=== PATIENT | female | born 1970 | race Caucasian/White ===

== ENCOUNTER 2016-12-14 11:40 | Emergency (ER) | payer MEDICAID ==
[~2016-12-14] VITALS: Ht 162.6 cm; Wt 59.4 kg
--- NOTE | 2016-12-14 12:46 | Urgent Treatment Center Report ---
History of Present Issue Date/Time Seen by Provider 12/14/16 1245 Visit Reason Pt arrived:Walked Presenting Problem:PT C/O RT SHOULDER PAIN AFTER PULLING ON SOMETHING HEAVY AT HOME YESTERDAY AND THEN HEARD HER SHOULDER POP Location if Accident:Home Onset of symptoms date/time:/ or onset unknown for:MEDICAL HX UNKNOWN Have you (or family members/close friends) recently traveled outside the [place]? N If Yes, where/when: Have you had exposure to infectious disease within the past month? TB? Other? Specify: c/o right shoulder pain and limited ROM s/p injury yesterday. reports she was pulling on something heavy when she felt a pop in her anterior shoulder w/ immediate pain and difficulty moving arm. ROM is "somewhat better" today but still significantly limited. Pain radiating into upper arm stopping at elbow. Denies N/T. Hasn't taken or tried anything for pain. Source patient Exam Limitations clinical condition (pain) ALLERGIES Coded Allergies: No Known Allergies (12/14/16) Home Medications Active Scripts IBUPROFEN MICRONIZED (IBUPROFEN 600MG) 600 MG PO Q8HP PRN pain #20 TAB Prov: 09/10/15 Methocarbamol (Robaxin 750MG) 750 MG PO BID #15 TAB Prov: 09/10/15 Reported Medications PAROXETINE HCL (Paxil) 10 MG PO DAILY Bupropion HCl (Bupropion HCl Sr 150mg) 150 MG PO BID BUDESONIDE/FORMOTEROL FUMARATE (Symbicort 160-4.5 Mcg Inhaler) 1 PUFF IH BID Atorvastatin Calcium (Lipitor 20MG) 20 MG PO DAILY History Medical History General CAD? No Angina: Yes AK: No Hypertension? Yes Hyperlipidemia? Yes CHF? No DVT? No PE? No COPD? Yes Asthma? Yes Anemia? No GERD? No Gastric ulcers? No GI Bleed? No Hernia? No Thyroid Problems? No Hypothyroidism? No CVA? No Seizures? No Diabetes? No Renal Insuffiency? No UTI? No Stones? No BPH? No GB Disease: No Nephritic Syndrome? No Asplenia? No Hepatitis? No Sickle Cell Disease? No Arthritis? No Migraines? No Cataracts? No Glaucoma? No MRSA? No HIV? No TB? No Anxiety? Yes Depression? No Cancer? No More? Yes Additional hx: ABNORMAL EKG CARPAL TUNNEL Immunization HX DT/Tetanus Unknown Flu Refused Pneumonia Refuses Surgical Hx Previous Surgery?Y BACK SURGERY FOOT SURGERY BREAST IMPLANTS CARPAL TUNNEL TUBAL Family History Family HX Diabetes Yes CAD Yes Hypertension No Hyperlipidemia No Cancer Yes TB No Social History Smoking Hx Smoker: Current Every Day Smoker Tobacco: Yes Type Cigarettes Packs/day < 1 Pack Alcohol Alcohol: No Review of Systems All Other Systems Reviewed and Negative Constitutional denies fever, denies malaise Respiratory denies shortness of breath Cardiovascular denies chest pain Musculoskeletal see HPI, denies back pain, denies joint swelling, denies muscle stiffness, denies neck pain Skin denies change in color, denies lumps Psychiatric/Neurological see HPI Physical Exam Vital Signs Vital Signs Date Time Temp Pulse Resp B/P Pulse O2 O2 Flow FiO2 Ox Delivery Rate 12/14 1333 18 12/14 1238 98.2 78 16 143/90 99 General Appearance no apparent distress Respiratory Status No: respiratory distress. Cardiovascular no peripheral edema Peripheral Pulses Pulses normal Yes (radial) Back normal inspection, gait normal, no tenderness Extremities normal inspection (right shoulder and upper arm), minimal ROM right shoulder, all directions; FROM rt digits, wrist, elbow. Pain right shoulder w/ elbow ROM. Tenderness right anterior shoulder only. Bicep muscle intact. Strength 3 Lower Ext (R), 5 Lower Ext (L) Neurologic alert, no motor/sensory deficits, oriented x 3 Mental status normal mood/affect Skin normal color, warm/dry Medical Decision Making LABS/Meds/Orders Pt receiving controlled substance in ED? No Results/Orders Current Medication Orders Sig/Vita Start time Last Medication Dose Route Stop Time Status Admin Ketorolac 0 .STK-MED ONE 12/14 1330 DC Tromethamine .ROUTE Ketorolac 60 MG ONCE ONE 12/14 1315 DC 12/14 Tromethamine IM 12/14 1316 1333 Orders Procedure Date/time Status STABILIZE JOINT 12/14 1423 Active [id number] VIEWS 12/14 1226 Active XRAY/CT/US XRAY/CT/US XRAY shoulder (right) XR interpretation by discussed w/radiologist (waiting for him to review) Xray Results result not available when pt left AMA Progress [facility] Progress Notes 1 Date 12/14/16 Time 1338 Comment pt aware we are waiting for ERMD to review xrays. States + understanding. [facility] Progress Notes 2 Date 12/14/16 Time 1418 Comment ER MD still not available to read xrays and radiologist in a "lengthy study" per radiology. Both agree they will review xrays when they have time. Pt no longer wants to wait for discharge. Prefers to leave AMA "and find out results and necessary treatment later. I have things I need to do and I have been here too long." Aware that results of xray will determine appropriate treatment and follow up but still doesn't want to wait for results. Request a sling prior to leaving. Departure Departure Time of Disposition 1423 Disposition Against Medical Advice Clinical Impression Primary Impression: Sprain of right shoulder Qualifiers: Encounter type: initial encounter Shoulder sprain type: unspecified sprain Qualified Code: S43.401A - Unspecified sprain of right shoulder joint, initial encounter Condition STABLE Referrals INDIA SMITH (Family) Be sure to follow up with primary care for xray results, necessary treatment and to inquire if referral to ortho necessary. Patient Instructions DI for Shoulder Sprain Additional Instructions * results of your xray will determine most appropriate treatment but since those are not available, I encourage you to BE SURE to follow up with primary care for results and therefore, treatment. In the meantime: * Rest * ice 15-20 mins 3-4 times a day * Ibuprofen every 6 hours as needed for pain and inflammation. If you need something more, you can take tylenol every 4 hours as needed as long as your primary care provider has told you it is ok to take both. Discharge Counseling Counseled pt/family regarding diagnosis, medications/RX, follow up needs at [phone]
[2016-12-14 14:31] VITALS: BP 143/90
--- NOTE | 2016-12-14 14:41 | RADIOLOGY REPORT PS360 ---
[id number]-3 VIEWS HISTORY: Right shoulder pain/sprain/strain PULLED ON SOMETHIMG AT HOME ORDERING PHYSICIAN: SOL ABRAHAM APRN PATIENT AGE: 46 years COMPARISON: None FINDINGS: No fracture or dislocation. No lytic or blastic change. There is normal mineralization. The joint spaces are well-preserved. No significant degenerative/arthritic changes. No erosive changes evident. IMPRESSION: Negative, no acute finding
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
--- OUTSIDE RECORDS SUMMARY | 2017-01-06 03:36 | External Medical Summary Rpt ---
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 Name Role Phone CRISTIAN FOSTER Unavailable Unavailable [facility] Un[facility] Un[facility], [facility] Unavailable Unavailable INC, [facility], Unavailable Unavailable [facility] CHRISTINE TRA, CHRISTINE TRA Unavailable Unavailable CHRISTINE TRA, CHRISTINE TRA Unavailable Unavailable [facility] GATITO MEDEROS Unavailable Un[facility] JOHNNY, JOHNNY Unavailable Unavailable [...] STONE Unavailable Unavailable MIMI, MIMI Unavailable Unavailable [facility] Unavailable Unavailable HOSPITALS, [facility] Unavailable Unavailable Purpose Continuity of Care Document - 06-02-2013 through 2016 Problems Code Diagnosis DOS Provider Status G8929 OTHER 11-26-2016 [facility] CHRONIC PHYSICIANS PAIN GROUP L237 ALLERGIC 11-26-2016 [facility] CONTACT PHYSICIANS DERMATITIS GROUP D/T PLANTS EXCP FOOD M545 LOW BACK 11-26-2016 [facility] PAIN PHYSICIANS GROUP [id number] PAIN IN 11-26-2016 [facility] LEFT HAND PHYSICIANS GROUP R0609 OTHER FORMS 11-26-2016 [facility] OF DYSPNEA PHYSICIANS GROUP Q211 ATRIAL 11-06-2016 [facility] DEFECT [facility] Z8673 PERSONAL HX 11-06-2016 [facility] INFARCT NO RESID DEFICIT I358 OTHER 10-13-2016 [facility] NONRHEUMATI SERV C AORTIC FOUNDATION VALVE DISORDERS I5189 OTHER 10-13-2016 [facility] ILL-DEFINED SERV HEART [facility] DISEASES I639 CEREBRAL 08-25-2016 [facility] UNSPECIFIED INC Z1231 ENCOUNTER 08-20-2016 [facility] MALIG IMAGING ASS NEOPLASM BREAST Z0100 ENCOUNTER 08-04-2016 [facility] EXAM EYES & VISION W/O ABNORMAL FIND Z0389 ENCOUNTER 07-30-2016 [facility] OBSERV OTH SERV SUSPCT DZ & FOUNDATION COND RULED OUT I509 HEART 07-29-2016 [place] [facility] FAILURE SERV UNSPECIFIED [facility]OUNDATION I10 ESSENTIAL 07-28-2016 [place] [facility] PR[facility] HYPERTENSIO FOUNDATION N I499 CARDIAC 07-28-2016 [place] [facility] ARRHYTHMIA SERV UNSPECIFIED FOUNDATION J449 CHRONIC 07-28-2016 [facility] OBSTRUCTIVE SERV PULMONARY FOUNDATION DISEASE UNS R208 OTHER 07-28-2016 [facility] DISTURBANCE SERV S OF SKIN FOUNDATION SENSATION U02257 NIHSS SCORE 07-28-2016 [facility] 4011 ESSENTIAL 08-25-2013 MIGUEL ÁNGEL CHARANJIT HYPERTENSIO N, BENIGN 496 CHRONIC 08-25-2013 MIGUEL ÁNGEL CHARANJIT AIRWAY OBSTRUCTION NEC 59292 ESOPHAGEAL 08-25-2013 MIGUEL ÁNGEL CHARANJIT REFLUX 7213 [...] 60 1- 9- 00 07 MA ve IN 00 20 20 50 RT ED 10 17 17 70 NI 3 78 PH SO AR LO MA NE CY 4 #5 MG 91 DO SE PK CO 00 08 09 4. 30 00 OR Ac MB 59 -3 -2 00 00 L- ti IV 70 1- 9- 0 07 MA ve EN 02 20 20 50 RT T 40 17 17 70 RE 2 79 PH SP AR IM MA AT CY IN #5 PAREKH 91 L SP RA Y CL 54 08 09 30 30 00 OR Ac OP 45 -1 -0 .0 00 L- ti ID 80 1- 1- 00 07 MA ve OG 88 20 20 50 RT RE 81 17 17 34 L 6 82 PH 75 AR MA MG CY TA #5 BL 91 ET BU 00 08 09 60 30 00 OR Ac IN 59 -0 -0 .0 00 L- ti OP 13 6- 1- 00 07 MA ve IO 54 20 20 50 RT N 10 17 17 10 HC 5 91 PH L AR SR MA CY 15 0 #5 MG 91 TA BL ET SP 00 08 09 4. 30 00 OR Ac IR 59 -0 -0 00 00 L- ti IV 70 4- 1- 0 07 MA ve A 10 20 20 50 RT RE 06 17 17 21 SP 1 95 PH IM AR AT MA CY 2. 5 #5 MC 91 G IN H PA 54 07 08 30 30 00 OR Ac RO 45 -2 -2 .0 00 L- ti XE 80 7- 5- 00 07 MA ve TI 99 20 20 50 RT NE 01 17 17 10 0 87 PH HC AR L MA 10 CY MG #5 91 TA BL ET AT 68 07 08 30 30 00 OR Ac OR 64 -2 -2 .0 00 L- ti VA 50 7- 5- [address] 45 20 20 50 RT AT 85 17 17 10 IN 4 86 PH AR 10 MA CY MG #5 TA 91 BL ET AM 68 07 08 30 30 00 OR Ac LO 64 -2 -2 .0 00 L- ti DI 50 7- 5- 00 07 MA ve PI 51 20 20 50 RT NE 65 17 17 10 4 90 PH BE AR SY MA LA CY TE #5 10 91 MG TA B TR 00 07 08 15 10 00 OR Ac IA 16 -2 -2 .0 00 L- ti MC 80 7- 5- 00 07 MA ve IN 00 20 20 50 RT OL 41 17 17 10 ON 5 94 PH E AR 0. MA 1% CY CR #5 EA 91 M BU 00 07 08 60 30 00 OR Ac IN 59 -1 -0 .0 00 L- ti [...] BU 00 05 06 60 30 00 OR Ac IN 59 -3 -3 .0 00 L- ti OP 13 1- 0- 07 MA ve IO 54 20 20 49 RT N 10 17 17 08 HC 5 40 PH L AR SR MA CY 15 0 #5 MG 91 TA BL ET DI 65 05 06 10 25 00 OR Ac CL 16 -1 -0 0. 00 L- ti OF 20 07 MA ve EN 83 20 20 0 48 RT AC 36 17 17 88 6 30 PH SO AR DI MA UM CY 1% #5 91 GE L PA 54 05 06 30 30 00 OR Ac RO 45 -1 -0 .0 00 [...] DOS Code Location Performer Comment INJECTION J1040 [facility] STONE 7 PHYSICIAN METHYLPRE S GROUP DNISOLONE ACETATE 80 MG THERAPEUT 95885 [facility] STONE IC 7 PHYSICIAN PROPHYLAC S GROUP TIC/DX INJECTION SUBQ/IM INJECTION J1100 [facility] STONE 7 PHYSICIAN DEXAMETHO S GROUP SONE SODIUM PHOSPHATE 1 MG SEPTAL C1817 [facility] DEFECT 7 HEALTHCAR HEALTHCAR IMPLANT E E SYSTEM [facility] INTRACARD IAC GUIDE C1769 [facility] WIRE 7 HEALTHCAR HEALTHCAR E E HOSPITALS HOSPITALS INJECTION J3010 [facility] FENTANYL 7 HEALTHCAR HEALTHCAR CITRATE E E 0.1 MG [facility]ITALS INJECTION J3370 [facility] 7 [facility] HEALTHCAR VANCOMYCI E E N [place]CL [address] [place] [address] [facility] GUIDANCE 7 [facility]ALTHCAR HEALTHCAR NEEDLE E E PLACEMENT [facility]IT[facility] IMG S&I INJECTION J2250 [facility] 7 HEALTHCAR HEALTHCAR MIDAZOLAM E E HCL PER [facility]ALS [facility]OSPITALS 1 MG BLOOD 94351 [facility] COUNT 7 HEALTHCAR HEALTHCAR COMPLETE E E AUTOMATED [facility] INTRACARD 73779 [facility] ECHOCARD 7 HEALTHCAR HEALTHCAR E E W/THER/DX [facility] IVNTJ INCL IMG S&I INTRDUCR/ C1894 [facility] SHEATH 7 [facility]ALTHCAR HEALTHCAR NOT GUID E E INTRACARD [facility] EP NON-LASR CATHETER C1759 [facility] INTRACARD 7 HEALTHCAR HEALTHCAR IAC E E ECHOCARDI [facility] OGRAPHY BASIC 17944 [facility] METABOLIC 7 HEALTHCAR HEALTHCAR PANEL E E CALCIUM [facility] TOTAL URINE 35391 [facility] 7 HEALTHCAR HEALTHCAR TEST E E VISUAL [facility] COLOR CMPRSN METHS PRQ TCAT 12283 [facility] CLSR CGEN 7 HEALTHCAR HEALTHCAR INTRATRL E E HOSPITALS [facility] COMUNICAJ W/IMPLT DOPPLER 93727 [facility] ECHOCARD 7 MEDICAL PULSE SERV WAVE FOUNDATIO W/SPECTRA N L DISPLAY MOD SED 66823 [facility] SAME 7 MEDICAL PHYS/QHP SERV EACH ADDL FOUNDATIO 15 MINS N INJECTION J2250 [facility] 7 HEALTHCAR HEALTHCAR MIDAZOLAM E E HCL PER [facility] 1 MG INJECTION J3010 [facility] FENTANYL 7 HEALTHCAR HEALTHCAR CITRATE E E 0.1 MG [facility] ECHO 56702 [facility] BRANDYN TRANSESOP 7 MEDICAL HAG R-T SERV 2D W/PRB FOUNDATIO IMG N ACQUISJ I&R DOP 76878 [facility] AHUMADA ECHOCARD 7 MEDICAL COLOR SERV FLOW FOUNDATIO VELOCITY N MAPPING MOD SED 57592 [facility] AHUMADA JULISA 7 MEDICAL PHYS/QHP SERV INITIAL FOUNDATIO 15 MINS N 5/> YRS ASSESSMEN 82082 [facility] W/INTERP INC INC & REPORT PER HOUR SCREENING G0202 [facility] 7 MEDICAL MAMMOGRAP IMAGING HY CHARLES ASS INCL CAD WHEN PERFORMD SCREENING 70669 [facility] 7 [facility]OSP MAMMOGRAP INC INC HY BI 2-VIEW BREAST INC CAD DETERMINA 43419 [facility] 7 REFRACTIV E STATE OPHTH 99436 [facility] 7 XM&EVAL COMPRE NEW PT 1/> VST HOSPITAL 58766 [facility] 7 MEDICAL DAY SERV MANAGEMEN FOUNDATIO T 30 N MIN/< DUP-SCAN 04987 [facility] MINI XTR VEINS 7 MEDICAL COMPLETE SERV FOUNDATIO BILATERAL N STUDY ECHO 72038 [facility] TTHRC R-T 7 MEDICAL 2D SERV W/WOM-MOD FOUNDATIO E COMPL N SPEC&COLR D SBSQ 59874 [facility] 7 MEDICAL CARE/DAY SERV 25 FOUNDATIO MINUTES N RADIOLOGI 32067 [facility] MIMI C 7 MEDICAL EXAMINATI SERV ON CHEST FOUNDATIO SINGLE N VIEW FRONTAL INITIAL 01919 [facility] 7 MEDICAL CARE/DAY SERV 70 FOUNDATIO MINUTES N ECG 61278 [facility]CO ROUTINE 7 MEDICAL ECG SERV W/LEAST FOUNDATIO 12 LDS N I&R ONLY RADEX 55053 [facility] TRA CHRISTINE TRA SPINE 4 LUMBOSACR AL 2/3 VIEWS CYTP 64267 AMINAH BURR CERV/VAG 4 GLE GLE AUTO THIN LAYER PREP MNL SCREEN OPHTH 38803 SCIFRES SCIFRES MEDICAL 4 ANG ANG XM&EVAL COMPRE NEW PT 1/> VST Encounters Encounter Start End Date Code Location Performer Type Date OFFICE 12080 [facility] TYRELL OUTPATIEN 7 7 PHYSICIAN T VISIT S GROUP 25 MINUTES [facility]OSPITAL - 7 7 HEALTHCAR OUTPATIEN E T HOSPITALS OFFICE 13870 [facility] 7 7 MEDICAL T VISIT SERV 15 FOUNDATIO MINUTES N HOSPITAL - 7 7 HEALTHCAR OUTPATIEN E T HOSPITALS OFFICE 12762 [facility] CONSULTAT 7 7 MEDICAL ION SERV NEW/ESTAB FOUNDATIO PATIENT N 60 MIN [facility] [place] [facility] 7 7 [facility] OUTPATIEN INC [facility] - 7 7 MEM HOSP OUTPATIEN [facility] OFFICE 34156 MIGUEL ÁNGEL DONOHUE OUTPATIEN 4 4 T VISIT 15 MINUTES OFFICE [address]11[address] [facility] TRA CONSULTAT 4 4 ION NEW/ESTAB PATIENT 60 MIN OFFICE 90344 MIGUEL ÁNGEL DONOHUE OUTPATIEN 4 4 T VISIT 15 MINUTES INITIAL 98535 AMINAH BURR PREVENTIV 4 4 GLE GLE E MEDICINE NEW PATIENT 40-64YRS
--- OUTSIDE RECORDS SUMMARY | 2017-01-06 03:37 | External Medical Summary Rpt ---
Author Author TRESSA Looney, TRESSA Looney Organization [employer] Address Unknown Phone Unavailable
--- OUTSIDE RECORDS SUMMARY | 2017-01-06 03:37 | External Medical Summary Rpt ---
Demographics Preferred Language Sinhala Marital Status Unknown Episcopal Affiliation Unknown Race Unknown Ethnic Group Unknown Author Author TRESSA Address Unknown Phone Immunization No patient found.
--- OUTSIDE RECORDS SUMMARY | 2017-01-06 03:37 | External Medical Summary Rpt ---
Author Author , TRESSA Organization TRESSA Address Unknown Phone [email or web address] Care Team Providers Care Fur Cleaner Name Role Phone DUKEKE, DUKEKE Unavailable Unavailable [facility] Un[facility] Un[facility] INC, [facility] Unavailable Unavailable INC, [facility], Unavailable Unavailable [facility] CHRISTINE TRA, CHRISTINE TRA Unavailable Unavailable CHRITSINE TRA, CHRISTINE TRA Unavailable Unavailable [facility] Unavailable [facility]available [facility], [facility] GAT[facility] MEDEROS Unavailable [facility]available [facility], [facility] JOHNNY, JOHNNY Unavailable Unavailable VENUS, VENUS Unavailable Unavailable VENUS, VENUS Unavailable Unavailable AMINAH GLE, Unavailable Unavailable AMINAH GLE AMINAH GLE, Unavailable Unavailable AMINAH GLE MINION, MINION Unavailable Unavailable MIGUEL ÁNGEL CHARANJIT, MIGUEL ÁNGEL CHARANJIT Unavailable Unavailable MIGUEL ÁNGEL CHARANJIT, MIGUEL ÁNGEL CHARANJIT Unavailable Unavailable FRANCO, FRANCO Unavailable Unavailable SCIFRES ANG, SCIFRES Unavailable Unavailable ANG SCIFRES ANG, SCIFRES Unavailable Unavailable ANG STONE, STONE Unavailable Unavailable MIMI, MIMI Unavailable Unavailable [facility] Unavailable Unavailable HOSPITALS, [facility] Unavailable Unavailable Purpose Continuity of Care Document - 06-02-2013 through 2016 Problems Code Diagnosis DOS Provider Status G8929 OTHER 11-26-2016 [facility] CHRONIC PHYSICIANS PAIN GROUP L237 ALLERGIC 11-26-2016 [facility] CONTACT PHYSICIANS DERMATITIS GROUP D/T PLANTS EXCP FOOD M545 LOW BACK 11-26-2016 [facility] PAIN PHYSICIANS GROUP F68166 PAIN IN 11-26-2016 [facility] LEFT HAND PHYSICIANS GROUP R0609 OTHER FORMS 11-26-2016 [facility] OF DYSPNEA PHYSICIANS GROUP Q211 ATRIAL 11-06-2016 [facility] DEFECT [facility] Z8673 PERSONAL HX 11-06-2016 [facility] CEREB [facility] INFARCT NO RESID DEFICIT I358 OTHER 10-13-2016 [place] [facility] NONRHEUMATI SERV C AORTIC FOUNDATION VALVE DISORDERS I5189 OTHER 10-13-2016 [facility] ILL-DEFINED SERV [facility]ART [facility] DISEASES I639 CEREBRAL 08-25-2016 [facility] UNSPECIFIED INC Z1231 ENCOUNTER 08-20-2016 [facility]IG [facility]AG[facility] ASS NEOPLASM BREAST Z0100 ENCOUNTER 08-04-2016 [facility] EXAM EYES & VISION W/O ABNORMAL FIND Z0389 ENCOUNTER 07-30-2016 [facility] OBSERV OTH SERV SUSPCT DZ & FOUNDATION COND RULED OUT I509 HEART 07-29-2016 [place] [facility] FAILURE SERV UNSPECIFIED FOUNDATION I10 ESSENTIAL 07-28-2016 [place] [facility] PR[facility] HYPERTENSIO FOUNDATION N I499 CARDIAC 07-28-2016 [place] [facility] ARRHYTHMIA SERV UNSPECIFIED FOUNDATION J449 CHRONIC 07-28-2016 [place] [facility] OBSTRUCTIVE SERV PULMONARY FOUNDATION DISEASE UNS R208 OTHER 07-28-2016 [place] [facility] DISTURBANCE SERV S OF SKIN [facility]OUNDATION SENSATION A64957 NIHSS SCORE 07-28-2016 [facility] 4011 ESSENTIAL 08-25-2013 MIGUEL ÁNGEL CHARANJIT HYPERTENSIO N, BENIGN 496 CHRONIC 08-25-2013 MIGUEL ÁNGEL CHARANJIT AIRWAY OBSTRUCTION NEC 28482 ESOPHAGEAL 08-25-2013 MIGUEL ÁNGEL CHARANJIT REFLUX 7213 LUMBOSACRAL 08-25-2013 MIGUEL ÁNGEL CHARANJIT SPONDYLOSIS WITHOUT MYELOPATHY 7384 ACQUIRED 07-27-2013 [facility]STINE TRA SPONDYLOLIS THESIS V252 STERILIZATI 06-20-2013 AMINAH ON GLE V7231 ROUTINE 06-20-2013 AMINAH GYNECOLOGIC GLE AL EXAMINATION V7285 OTHER 06-20-2013 AMINAH SPECIFIED GLE EXAMINATION 3674 PRESBYOPIA 06-02-2013 SCIFRES ANG Medications Na ND Rx Da Fi Fi [...] UM CY 1% #5 91 GE L CO 00 08 09 4. 30 00 WA Ac MB 59 -3 -2 00 00 L- ti IV 70 1- 9- 0 07 MA ve EN 02 20 20 50 RT T 40 17 17 70 RE 2 79 PH SP AR IM MA AT CY IN #5 PAREKH 91 L SP RA Y ME 59 08 09 21 6 00 WA Ac TH 74 -3 -2 .0 00 L- ti YL 60 1- 9- 00 07 MA ve VA 00 20 20 50 RT ED 10 17 17 70 NI 3 78 PH SO AR LO MA NE CY 4 #5 MG 91 DO SE PK SP 00 08 09 4. 30 00 AR Ac IR 59 -0 -0 00 00 L- ti IV 70 4- 1- 0 07 MA ve A 10 20 20 50 RT RE 06 17 17 21 SP 1 95 PH IM AR AT MA CY 2. 5 #5 MC 91 G IN H BU 00 08 09 60 30 00 AR Ac VA 59 -0 -0 .0 00 L- ti OP 13 6- 1- 00 07 MA ve IO 54 20 20 50 RT N 10 17 17 10 HC 5 91 PH L AR SR MA CY 15 0 #5 MG 91 TA BL ET CL 54 08 09 30 30 00 AR Ac OP 45 -1 -0 .0 00 L- ti ID 80 1- 1- 00 07 MA ve OG 88 20 20 50 RT RE 81 17 17 34 L 6 82 PH 75 AR MA MG CY TA #5 BL 91 ET AM 68 07 08 30 30 00 AR Ac LO 64 -2 -2 .0 00 L- ti DI 50 7- 5- 00 07 MA ve PI 51 20 20 50 RT NE 65 17 17 10 4 90 PH BE AR SY MA LA CY TE #5 10 91 MG TA B TR 00 07 08 15 10 00 AR Ac IA 16 -2 -2 .0 00 L- ti MC 80 7- 5- 00 07 MA ve IN 00 20 20 50 RT OL 41 17 17 10 ON 5 94 PH E AR 0. MA 1% CY CR #5 EA 91 M PA 54 07 08 30 30 00 AR Ac RO 45 -2 -2 .0 00 L- ti XE 80 7- 5- 00 07 MA ve TI 99 20 20 50 RT NE 01 17 17 10 0 87 PH HC AR L MA 10 CY MG #5 91 TA BL ET AT 68 07 08 30 30 00 AR Ac OR 64 -2 -2 .0 00 L- ti VA 50 7- 5- [address] 45 20 20 50 RT AT 85 17 17 10 IN 4 86 PH AR 10 MA CY MG #5 TA 91 BL ET BU 00 07 08 60 30 00 AR Ac VA 59 -1 -0 .0 00 L- ti OP 13 1- 4- 00 07 MA ve IO 54 20 20 49 RT N 10 17 17 08 HC 5 40 PH L AR SR MA CY 15 0 #5 MG 91 TA BL ET TR 00 06 07 15 10 00 AR Ac IA 16 -0 -0 .0 00 L- ti MC 80 7- 7- 00 07 MA ve IN 00 20 20 49 RT OL 41 17 17 21 ON 5 62 PH E AR 0. MA 1% CY CR #5 EA 91 M PA 54 06 10 25 30 00 AR Ac RO 45 -1 -0 .0 00 L- ti XE 80 5- 7- 00 07 MA ve TI 99 20 20 48 RT NE 01 17 17 88 0 29 PH HC AR L MA 10 CY MG #5 91 TA BL ET BU 00 05 06 60 30 00 AR Ac VA 59 -3 -3 .0 00 L- ti OP 13 1- 0- 00 07 MA ve IO 54 20 20 49 RT N 10 17 17 08 HC 5 40 PH L AR SR MA CY 15 0 #5 MG 91 TA BL ET AT 68 05 09 25 30 00 AR Ac OR 64 -3 -3 .0 00 L- ti VA 50 1- 0- [address] 46 20 20 48 RT AT 05 17 17 62 IN 4 57 PH AR 40 MA CY MG #5 TA 91 BL ET DI 65 05 06 10 25 00 AR Ac CL 16 -1 -0 0. 00 L- ti OF 20 9 07 MA ve EN 83 20 20 0 48 RT AC 36 17 17 88 6 30 PH SO AR DI MA UM CY 1% #5 91 GE L PA 54 05 30 30 00 AR Ac RO 45 -1 -0 .0 00 L- ti XE 80 9 9- 07 MA ve TI 99 20 20 48 RT NE 01 17 17 88 0 29 PH HC AR L MA 10 CY MG #5 91 TA BL ET SY 00 05 06 10 30 00 AR Ac MB 18 -1 -0 .1 00 L- ti IC 60 9 9 99 07 MA ve OR 37 20 20 48 RT T 02 17 17 88 16 0 28 PH 0- AR 4. MA 5 CY MC G #5 IN 91 PAREKH LE R AT 68 05 30 30 00 WA Ac OR 64 -0 -0 .0 00 L- ti VA 50 4- 2- [address] 46 20 20 48 RT AT 05 17 17 62 IN 4 57 PH AR 40 MA CY MG #5 TA 91 BL ET CH 00 05 06 53 28 00 AR Ac AN 06 -0 -0 .0 00 L- ti TI 90 4- 2- 00 07 MA ve X 47 [address] 10 17 17 62 AR 3 56 PH TI AR NG MA CY MO NT #5 H 91 NAFISA X Procedures Procedure DOS Code Location Performer Comment THERAPEUT 29756 [facility] STONE IC 7 PHYSICIAN PROPHYLAC S GROUP TIC/DX INJECTION SUBQ/IM INJECTION J1100 [facility] STONE 7 PHYSICIAN DEXAMETHO S GROUP SONE SODIUM PHOSPHATE 1 MG INJECTION J1040 [facility] STONE 7 PHYSICIAN METHYLPRE S GROUP DNISOLONE ACETATE 80 MG INJECTION J2250 [facility] 7 HEALTHCAR HEALTHCAR MIDAZOLAM E E HCL PER [facility] 1 MG INTRACARD 24144 [facility] ECHOCARD 7 HEALTHCAR HEALTHCAR E E W/THER/DX [facility] IVNTJ INCL IMG S&I BASIC 34981 [facility] METABOLIC 7 HEALTHCAR HEALTHCAR PANEL E E CALCIUM [facility] TOTAL URINE 59084 [facility] 7 HEALTHCAR HEALTHCAR TEST E E VISUAL [facility] COLOR CMPRSN METHS GUIDE C1769 [facility] WIRE 7 HEALTHCAR HEALTHCAR E E [facility] PRQ TCAT 89647 [facility] CLSR CGEN 7 HEALTHCAR HEALTHCAR INTRATRL E E [facility] COMUNICAJ W/IMPLT BLOOD 78546 [facility] COUNT 7 HEALTHCAR HEALTHCAR COMPLETE E E AUTOMATED [facility] INTRDUCR/ C1894 [facility] SHEATH 7 HEALTHCAR HEALTHCAR NOT GUID E E INTRACARD [facility] EP NON-LASR CATHETER C1759 [facility] INTRACARD 7 HEALTHCAR HEALTHCAR IAC E E ECHOCARDI [facility] [place] [address] [facility] GUIDANCE 7 HEALTHCAR HEALTHCAR NEEDLE E E PLACEMENT [facility] IMG S&I SEPTAL C1817 [facility] DEFECT 7 HEALTHCAR HEALTHCAR IMPLANT E E SYSTEM [facility] INTRACARD IAC INJECTION J3010 [facility] FENTANYL 7 HEALTHCAR HEALTHCAR CITRATE E E 0.1 MG [facility]OSPITALS INJECTION J3370 [facility] 7 HEALTHCAR HEALTHCAR VANCOMYCI E E N HCL 500 [facility] MG DOPPLER 50956 [facility] ECHOCARD 7 HEALTHCAR HEALTHCAR PULSE E E WAVE [facility] W/SPECTRA L DISPLAY INJECTION J3010 [facility] FENTANYL 7 HEALTHCAR HEALTHCAR CITRATE E E 0.1 MG HOSPITALS HOSPITALS MOD SED 45750 [facility] SAME 7 HEALTHCAR HEALTHCAR PHYS/QHP E E INITIAL [facility] 15 MINS 5/> YRS MOD SED 69395 [facility] SAME 7 HEALTHCAR HEALTHCAR PHYS/QHP E E EACH ADDL [facility] 15 MINS ECHO 80927 [facility] TRANSESOP 7 HEALTHCAR HEALTHCAR HAG R-T E E 2D W/PRB [facility] IMG ACQUISJ I&R DOP 18406 [facility] ECHOCARD 7 HEALTHCAR HEALTHCAR COLOR E E FLOW [facility] VELOCITY MAPPING INJECTION J2250 [facility] 7 HEALTHCAR HEALTHCAR MIDAZOLAM E E HCL PER [facility] 1 MG ASSESSMEN 88598 [facility] 7 [facility] H[facility]OSP W/INTERP INC INC & REPORT PER HOUR SCREENING 96539 [facility]OS[facility] MAMMOGRAP INC INC HY BI 2-VIEW BREAST INC CAD SCREENING G0202 [place] [address] MEDICAL MAMMOGRAP IMAGING HY CHARLES ASS INCL CAD WHEN PERFORMD DETERMINA 18795 [facility] 7 REFRACTIV E STATE OPHTH 49634 [facility] 7 XM&EVAL COMPRE NEW PT 1/> VST [facility] 575[address] [facility] 7 MEDICAL DAY SERV MANAGEMEN FOUNDATIO T 30 N MIN/< DUP-SCAN 92831 [facility]ION XTR VEINS 7 MEDICAL COMPLETE SERV FOUNDATIO BILATERAL N STUDY SBSQ 62422 [facility] 7 MEDICAL CARE/DAY SERV 25 FOUNDATIO MINUTES N ECHO 78617 [facility] MEDEROS TTHRC R-T 7 MEDICAL 2D SERV W/WOM-MOD FOUNDATIO E COMPL N SPEC&COLR D RADIOLOGI 23508 [facility] 7 MEDICAL EXAMINATI SERV ON CHEST FOUNDATIO SINGLE N VIEW FRONTAL INITIAL [address] [place] [address] MEDICAL CARE/DAY SERV 70 FOUNDATIO MINUTES N ECG 87463 [facility] 7 MEDICAL ECG SERV W/LEAST FOUNDATIO 12 LDS N I&R ONLY RADEX 46889 [facility] TRA CHRISTINE TRA SPINE 4 LUMBOSACR AL 2/3 VIEWS CYTP 96464 AMINAH BURR CERV/VAG 4 GLE GLE AUTO THIN LAYER PREP MNL SCREEN OPH 87159 SCIFRES SCIFRES MEDICAL 4 ANG ANG XM&EVAL COMPRE NEW PT 1/> VST Encounters Encounter Start End Date Code Location Performer Type Date OFFICE 64926 [facility] STONE OUTPATIEN 7 7 PHYSICIAN T VISIT S GROUP 25 MINUTES [facility]OS[facility] - [facility] 7 [facility] OUTPATIEN E T [facility]PITALS OFFICE 88957 [facility] 7 7 MEDICAL T VISIT SERV 15 FOUNDATIO MINUTES N HOSPITAL [facility] - 7 7 [facility]CAR OUTPATIEN E T HOSPITALS OFFICE 12288 [facility] 7 7 MEDICAL ION SERV NEW/ESTAB FOUNDATIO PATIENT N 60 MIN [facility] [place] [facility] OUTPATIEN INC T OFFICE 02025 MIGUEL ÁNGELTIFFANY DONOHUE OUTPATIEN 4 4 T VISIT 15 MINUTES OFFICE 37124 [facility]STINE TRA CONSULTAT 4 4 ION NEW/ESTAB PATIENT 60 MIN OFFICE 33091 MIGUEL ÁNGEL PARK CHARANJIT OUTPATIEN 4 4 T VISIT 15 MINUTES INITIAL 05346 AMINAH BURR PREVENTIV 4 4 GLE GLE E MEDICINE NEW PATIENT 40-64YRS
--- OUTSIDE RECORDS SUMMARY | 2017-01-06 03:37 | External Medical Summary Rpt ---
Author Author , TRESSA Organization TRESSA Address Unknown Phone [email or web address] Care Team Providers Care Quarantine Officer Name Role Phone DUKEKE, DUKEKE Unavailable Unavailable [facility] Unavailable [facility], [facility] Unavailable Unavailable [facility], [facility], Unavailable Unavailable [facility] CHRISTINE TRA, CHRISTINE TRA Unavailable Unavailable CHRIST[facility] TRA, CHRISTINE TRA Unavailable Unavailable [facility] GATITO MEDEROS Unavailable Unavailable [facility] [place] [facility]ONE Unavailable Unavailable MIMI, MIMI Unavailable Unavailable [facility] Unavailable [facility], [facility] R[facility] MIRANDA Unavailable Unavailable Purpose Continuity of Care Document - 06-02-2013 through 2016 Problems Code Diagnosis DOS Provider Status G8929 OTHER 11-26-2016 [facility] L237 ALLERGIC 11-26-2016 [facility] DERMATITIS [facility] D/T PLANTS EXCP FOOD M545 LOW BACK 11-26-2016 [facility] PAIN [facility]YS[facility] [id number] PAIN IN 11-26-2016 [facility] LEFT HAND [facility]YS[facility] R0609 OTHER FORMS 11-26-2016 [facility] OF DYSPNEA PHYSICIANS GROUP Q211 ATRIAL 11-06-2016 [facility] DEFECT [facility] Z8673 PERSONAL HX 11-06-2016 [facility]ALTHCARE CEREB [facility] INFARCT NO RESID DEFICIT I358 OTHER 10-13-2016 [facility] VALVE DISORDERS I5189 OTHER 10-13-2016 [facility] DISEASES I639 CEREBRAL 08-25-2016 [facility] UNSPEC[facility] Z1231 ENCOUNTER 08-20-2016 [facility] NEOPLASM BREAST Z0100 ENCOUNTER 08-04-2016 [facility] EXAM EYES & VISION W/O ABNORMAL FIND Z0389 ENCOUNTER 07-30-2016 [facility] SUSPCT DZ & [facility] COND RULED OUT I509 HEART 07-29-2016 [facility]URE [facility] I10 ESSENTIAL 07-28-2016 [facility] HYPERTENSIO [facility] N I499 CARDIAC 07-28-2016 [facility] ARRHYTHMIA [facility]NSPECIFIED [facility] J449 CHRONIC 07-28-2016 [facility] PULMONARY [facility] DISEASE UNS R208 OTHER 07-28-2016 [facility] S OF SKIN [facility] SENSATION [id number] NIHSS SCORE 07-28-2016 [facility] 4011 ESSENTIAL 08-25-2013 MIGUEL ÁNGEL CHARANJIT HYPERTENSIO N, BENIGN 496 CHRONIC 08-25-2013 [facility]IG[facility] ÁNGEL CHARANJIT AIRWAY OBSTRUCTION NEC 78383 ESOPHAGEAL 08-25-2013 MIGUEL ÁNGEL CHARANJIT REFLUX 7213 [...] 60 1- 9- 00 07 MA ve VT 00 20 20 50 RT ED 10 17 17 70 NI 3 78 PH SO AR LO MA NE CY 4 #5 MG 91 DO SE PK SP 00 08 09 4. 30 00 NV Ac IR 59 -0 -0 00 00 L- ti IV 70 4- 1- 0 07 MA ve A 10 20 20 50 RT RE 06 17 17 21 SP 1 95 PH IM AR AT MA CY 2. 5 #5 MC 91 G IN H BU 00 08 09 60 30 00 NV Ac VT 59 -0 -0 .0 00 L- ti OP 13 6- 1- 00 07 MA ve IO 54 20 20 50 RT N 10 17 17 10 HC 5 91 PH L AR SR MA CY 15 0 #5 MG 91 TA BL ET CL 54 08 09 30 30 00 NV Ac OP 45 -1 -0 .0 00 L- ti ID 80 1- 1- 00 07 MA ve OG 88 20 20 50 RT RE 81 17 17 34 L 6 82 PH 75 AR MA MG CY TA #5 BL 91 ET AM 68 07 08 30 30 00 NV Ac LO 64 -2 -2 .0 00 L- ti DI 50 7- 5- 00 07 MA ve PI 51 20 20 50 RT NE 65 17 17 10 4 90 PH BE AR SY MA LA CY TE #5 10 91 MG TA B TR 00 07 08 15 10 00 NV Ac IA 16 -2 -2 .0 00 L- ti MC 80 7- 5- 00 07 MA ve IN 00 20 20 50 RT OL 41 17 17 10 ON 5 94 PH E AR 0. MA 1% CY CR #5 EA 91 M PA 54 07 08 30 30 00 NV Ac RO 45 -2 -2 .0 00 L- ti XE 80 7- 5- 00 07 MA ve TI 99 20 20 50 RT NE 01 17 17 10 0 87 PH HC AR L MA 10 CY MG #5 91 TA BL ET AT 68 07 08 30 30 00 NV Ac OR 64 -2 -2 .0 00 L- ti VA 50 7- 5- [address] 45 20 20 50 RT AT 85 17 17 10 IN 4 86 PH AR 10 MA CY MG #5 TA 91 BL ET BU 00 07 08 60 30 00 NV Ac VT 59 -1 -0 .0 00 L- ti OP 13 1- 4- 00 07 MA ve IO 54 20 20 49 RT N 10 17 17 08 HC 5 40 PH L AR SR MA CY 15 0 #5 MG 91 TA BL ET TR 00 06 07 15 10 00 NV Ac IA 16 -0 -0 .0 00 L- ti MC 80 7- 7- 00 07 MA ve IN 00 20 20 49 RT OL 41 17 17 21 ON 5 62 PH E AR 0. MA 1% CY CR #5 EA 91 M PA 54 06 10 25 30 00 NV Ac RO 45 -1 -0 .0 00 L- ti XE 80 5- 7- 00 07 MA ve TI 99 20 20 48 RT NE 01 17 17 88 0 29 PH HC AR L MA 10 CY MG #5 91 TA BL ET BU 00 05 06 60 30 00 NV Ac VT 59 -3 -3 .0 00 L- ti OP 13 1- 0- 00 07 MA ve IO 54 20 20 49 RT N 10 17 17 08 HC 5 40 PH L AR SR MA CY 15 0 #5 MG 91 TA BL ET AT 68 05 09 25 30 00 NV Ac OR 64 -3 -3 .0 00 L- ti VA 50 1- 0- [address] 46 20 20 48 RT AT 05 17 17 62 IN 4 57 PH AR 40 MA CY MG #5 TA 91 BL ET DI 65 05 06 10 25 00 NV Ac CL 16 -1 -0 0. 00 L- ti OF 20 9 07 MA ve EN 83 20 20 0 48 RT AC 36 17 17 88 6 30 PH SO AR DI MA UM CY 1% #5 91 GE L PA 54 05 30 30 00 NV Ac RO 45 -1 -0 .0 00 L- ti XE 80 9 9- 07 MA ve TI 99 20 20 48 RT NE 01 17 17 88 0 29 PH HC AR L MA 10 CY MG #5 91 TA BL ET SY 00 05 06 10 30 00 NV Ac MB 18 -1 -0 .1 00 [...] CH 00 05 06 53 28 00 NV Ac AN 06 -0 -0 .0 00 L- ti TI 90 4- 2- 00 07 MA ve X 47 [address] 10 17 17 62 AR 3 56 PH TI AR NG MA CY MO NT #5 H 91 NAFISA X Procedures Procedure DOS Code Location Performer Comment THERAPEUT 22956 [facility] 7 PHYSICIAN PROPHYLAC S GROUP TIC/DX INJECTION SUBQ/IM INJECTION J1100 [facility] 7 PHYSICIAN DEXAMETHO S GROUP SONE SODIUM PHOSPHATE 1 MG INJECTION J1040 [facility] 7 PHYSICIAN METHYLPRE S GROUP DNISOLONE ACETATE 80 MG INJECTION J2250 [facility] MIDAZOLAM E E HCL PER [facility] 1 MG INTRACARD 12515 [facility] ECHOCARD 7 [facility] HEALTHCAR E E W/THER/DX [facility] IVNTJ INCL IMG S&I BASIC 75265 [facility] METABOLIC 7 [facility] PANEL E E CALCIUM [facility] TOTAL URINE 16932 [facility] TEST E E VISUAL [facility] COLOR CMPRSN METHS GUIDE C1769 [facility] WIRE 7 [facility] HEALTHCAR E E [facility] PRQ TCAT 09972 [facility] CLSR CGEN 7 [facility]ALTHCAR INTRATRL E E [facility] COMUNICAJ W/IMPLT BLOOD 39652 [facility] COUNT 7 [facility] COMPLETE E E AUTOMATED [facility] INTRDUCR/ C1894 [facility] SHEATH 7 [facility] NOT GUID E E INTRACARD [facility] EP NON-LASR CATHETER C1759 [facility] INTRACARD 7 [facility]ALTH[facility] IAC E E ECHOCARDI [facility] [place] [place] [address] [facility] GUIDANCE 7 [facility] NEEDLE E E PLACEMENT [facility] IMG S&I SEPTAL C1817 [facility] DEFECT 7 [facility] IMPLANT E E SYSTEM [facility] INTRACARD IAC INJECTION J3010 [facility] FENTANYL 7 [facility]ALTH[facility] HEALTHCAR CITRATE E E 0.1 MG [facility] INJECTION J3370 [facility] 7 [facility]ALTHCAR VANCOMYCI E E N HCL 500 [facility] MG DOPPLER 96087 [facility] ECHOCARD 7 [facility] PULSE E E WAVE [facility] W/SPECTRA L DISPLAY INJECTION J3010 [facility]L 7 [facility]ALTH[facility] CITRATE E E 0.1 [facility] MOD SED 82574 [facility] SAME 7 [facility] PHYS/QHP E E INITIAL [facility] 15 MINS 5/> YRS MOD SED 79990 [facility] SAME 7 [facility] PHYS/QHP E E EACH ADDL [facility] 15 MINS ECHO 55539 [facility] TRANSESOP 7 [facility] HEALTH[facility] HAG R-T E E 2D W/PRB [facility] IMG ACQUISJ I&R DOP 02668 [facility] HEALTHCAR COLOR E E FLOW [facility] VELOCITY MAPPING INJECTION J2250 [facility] 7 [facility]ALTH[facility] HEALTHCAR MIDAZOLAM E E HCL PER [facility] 1 MG ASSESSMEN 73853 [facility] W/INTERP INC INC & REPORT PER HOUR SCREENING 49510 [facility] MAMMOGRAP INC INC HY BI 2-VIEW BREAST INC CAD SCREENING G0202 [place] [address] MEDICAL MAMMOGRAP IMAGING HY CHARLES ASS INCL CAD WHEN PERFORMD DETERMINA 45530 [facility] 7 REFRACTIV E STATE OPHTH 05601 [facility] 7 XM&EVAL COMPRE NEW PT 1/> VST [facility] [address] [facility] 7 MEDICAL DAY SERV MANAGEMEN FOUNDATIO T 30 N MIN/< DUP-SCAN 42363 [facility] XTR VEINS 7 MEDICAL COMPLETE SERV FOUNDATIO BILATERAL N STUDY SBSQ 81174 [facility] 7 MEDICAL CARE/DAY SERV 25 FOUNDATIO MINUTES N ECHO 46119 [facility] R-T 7 MEDICAL 2D SERV W/WOM-MOD FOUNDATIO E COMPL N SPEC&COLR D RADIOLOGI 16556 [facility] 7 MEDICAL EXAMINATI SERV ON CHEST FOUNDATIO SINGLE N VIEW FRONTAL INITIAL [address] [place] [address] MEDICAL CARE/DAY SERV 70 FOUNDATIO MINUTES N ECG 67950 [facility] 7 MEDICAL ECG SERV W/LEAST FOUNDATIO 12 LDS N I&R ONLY RADEX 67931 [facility] SPINE 4 LUMBOSACR AL 2/3 VIEWS CYTP 30180 AMINAH BURR CERV/VAG 4 GLE GLE AUTO THIN LAYER PREP MNL SCREEN OPH 26930 SCIFRES SCIFRES MEDICAL 4 ANG ANG XM&EVAL COMPRE NEW PT 1/> VST Encounters Encounter Start End Date Code Location Performer Type Date OFFICE 67679 [facility] 7 7 PHYSICIAN T VISIT S GROUP 25 MINUTES [facility] OFF[facility] 19751 [facility] 7 7 MEDICAL T VISIT SERV 15 FOUNDATIO MINUTES N [facility] OUTPATI[facility] E T [facility] OFFICE 13040 [facility] 7 7 MEDICAL ION SERV NEW/ESTAB FOUNDATIO PATIENT N 60 MIN [facility] OUTPATIEN INC T OFFICE 42922 [facility] ÁNGELTIFFANY DONOHUE OUTPATIEN 4 4 T VISIT 15 MINUTES OFFICE 31873 [facility] 4 4 ION NEW/ESTAB PATIENT 60 MIN OFFICE 07411 [facility]EL [facility] CHARANJIT OUTPATIEN 4 4 T VISIT 15 MINUTES INITIAL 13947 AMINAH BURR PREVENTIV 4 4 GLE GLE E MEDICINE NEW PATIENT 40-64YRS
--- OUTSIDE RECORDS SUMMARY | 2017-01-06 03:37 | External Medical Summary Rpt ---
Demographics Preferred Language Slovenian Marital Status Unknown [employer] Affiliation Unknown Race Unknown Ethnic Group Unknown Author Author TRESSA Address Unknown Phone Immunization No patient found.
== END 2016-12-14 14:32 | disposition left against medical advice (07) ==
LOC: UTC 11:40
DX: S43.491A Other sprain of right shoulder joint, initial encounter (principal); X50.0XXA Overexertion from strenuous movement or load, initial encounter; Z53.21 Procedure and treatment not carried out due to patient leaving prior to being seen by health care provider; Y92.009 Unspecified place in unspecified non-institutional (private) residence as the place of occurrence of the external cause; F17.210 Nicotine dependence, cigarettes, uncomplicated; Z79.51 Long term (current) use of inhaled steroids; Z79.899 Other long term (current) drug therapy; I10 Essential (primary) hypertension; E78.5 Hyperlipidemia, unspecified; J45.909 Unspecified asthma, uncomplicated

== ENCOUNTER → 2016-12-16 | Outpatient (CLI) | payer MEDICAID ==
[~2016-12-16] MED LIST: IBUPROFEN 600M600 MG PO; LIPITOR20 MG PO; NORCO1 TAB PO; PAXIL10 MG PO; ROBAXIN-750750 MG PO; SYMBICORT1 AE1 IH; VISTARIL25 MG PO; WELLBUTRIN 150150 MG PO; XANAX 0.25MG0.25 MG PO
== END ==
LOC: RT 12-15 14:00
DX: R06.09 Other forms of dyspnea (principal)